=== PATIENT | male | born 1965 | race Two or more races ===

== ENCOUNTER 2023-08-12 07:20 | Day surgery (SDC) | payer OTHER ==
[2023-08-06 17:39] VITALS: BMI 26.2
[2023-08-12] MEDS ORDERED: LIDOCAINE HCL/PF 2% SDV 5ML VIAL ONE (07:27)
[2023-08-12] MEDS ORDERED: PROPOFOL 120 ML ONE (07:28)
[2023-08-12 08:48] VITALS: PULSE 71; RESP 17; TEMP 97.4
[2023-08-12 08:50] VITALS: BP 102/60
== END 2023-08-12 09:00 | disposition home or self-care (01) ==
LOC: FASU-ENDO 07:20
PROVIDERS: ATTEND Internal Medicine Gastroenterology
PROC: 0DBN8ZX Excision of Sigmoid Colon, Via Natural or Artificial Opening Endoscopic, Diagnostic (ICD-10-PCS; principal; 2023-08-12 08:13)
DX: Z12.11 Encounter for screening for malignant neoplasm of colon (principal); K63.5 Polyp of colon; K57.30 Diverticulosis of large intestine without perforation or abscess without bleeding